=== PATIENT | female | born 1930 | race Caucasian/White ===

== ENCOUNTER 2016-11-03 09:50 | Outpatient (CLI) | payer MEDICARE, OTHER | END 2016-11-03 09:52 | LOC: RAD 09:50 | PROVIDERS: ATTEND Family Medicine | DX: Z78.0 Asymptomatic menopausal state (principal); Z13.820 Encounter for screening for osteoporosis | CPT/HCPCS: 77080 ==

== ENCOUNTER 2016-11-23 12:59 | Outpatient (CLI) | payer MEDICARE, OTHER ==
[2016-11-23 13:44] LABS: eGFR (African) > 60; eGFR (Non-African) 41
== END 2016-11-23 13:00 ==
LOC: LAB 12:59
PROVIDERS: ATTEND Family Medicine
DX: I10 Essential (primary) hypertension (principal)
CPT/HCPCS: 36415; 80048

== ENCOUNTER 2016-11-30 13:13 | Outpatient (CLI) | payer MEDICARE, OTHER ==
[2016-11-30] MEDS ORDERED: DENOSUMAB 60 MG/ML ML SQ ONE (13:30)
== END 2016-11-30 13:14 ==
LOC: INF 13:13
PROVIDERS: ATTEND Family Medicine
DX: M81.0 Age-related osteoporosis without current pathological fracture (principal)
CPT/HCPCS: 96372; J0897

== ENCOUNTER 2017-04-25 09:43 | Outpatient (CLI) | payer MEDICARE, OTHER ==
[2017-04-25 10:33] LABS: eGFR (African) > 60; eGFR (Non-African) > 60
== END 2017-04-25 09:44 ==
LOC: LAB 09:43
PROVIDERS: ATTEND Family Medicine
DX: E78.2 Mixed hyperlipidemia (principal)
CPT/HCPCS: 36415; 80053; 80061

== ENCOUNTER 2017-06-06 12:58 | Outpatient (CLI) | payer MEDICARE, OTHER ==
[2017-06-06] MEDS ORDERED: DENOSUMAB 60 MG/ML ML SQ ONE (13:00)
[2017-06-06] MEDS ORDERED: DENOSUMAB 60 MG/ML ML SQ SCH (13:00)
== END 2017-06-06 13:00 ==
LOC: INF 12:58
PROVIDERS: ATTEND Family Medicine
DX: M81.0 Age-related osteoporosis without current pathological fracture (principal)
CPT/HCPCS: 96372; J0897

== ENCOUNTER 2017-08-07 14:57 | Outpatient (CLI) | payer MEDICARE, OTHER ==
[2017-08-07 15:13] LABS: BASOPHILS % 0.4 (0.0-1.5); EOSINOPHILS % 1.7 % (0.0-6.8); MEAN CORPUSCULAR HEMOGLOBIN 28.9 pg (28.0-34.0); MEAN CORPUSCULAR VOLUME 88.8 fl (80.0-100.0); MONOCYTES % 6.6 % (0.0-11.0); NEUTROPHILS # 6.2 # k/uL (1.4-7.7)
--- NOTE | 2017-08-07 17:47 | Diagnostic Imaging Report ---
MENDOZA CHAVES [facility] [address] On License Of [facility] [address] [address] Report Submission Date: Aug 07, 2017 5:29:56 PM WIRE WEAVER CLOTH Patient Study Name: ARTUR BATEMAN Date: Aug 07, 2017 3:34:58 PM WIRE WEAVER CLOTH Modality Type: CR Gender: F Description: CHEST : 29 Institution: [facility] Physician: MENDOZA CHAVES PA and lateral chest Clinical history: PT STATES COUGH, SOB, SORE THROAT FOR 3 DAYS. DENIES ANY HEART OR LUNG CONDITIONS NONSMOKER. Findings: Examination of the chest in PA and lateral views with no prior films for comparison demonstrates the lungs to be hyperinflated with flattening of the hemidiaphragms. Cardiac silhouette is enlarged and the aorta is atherosclerotic. Minimal apical pleural thickening is seen bilaterally. There is no coalescent infiltrate. Impression: 1. Emphysema. 2. Cardiomegaly and aortic atherosclerosis. 3. No active disease. Electronically signed on Aug 07, 2017 5:29:56 PM WIRE WEAVER CLOTH by: Mode RICH
== END 2017-08-07 15:00 ==
LOC: RAD 14:57
PROVIDERS: ATTEND Family Medicine
DX: R05 Cough (principal)
CPT/HCPCS: 36415; 71020; 85025

== ENCOUNTER 2017-12-05 09:01 | Outpatient (CLI) | payer MEDICARE, OTHER ==
[2017-12-05] MEDS ORDERED: DENOSUMAB 60 MG/ML ML SQ ONE (09:15)
== END 2017-12-05 09:02 ==
LOC: INF 09:01
PROVIDERS: ATTEND Family Medicine
DX: M81.0 Age-related osteoporosis without current pathological fracture (principal)
CPT/HCPCS: 96372; J0897

== ENCOUNTER 2018-04-24 10:58 | Outpatient (CLI) | payer MEDICARE, OTHER ==
[2018-04-24 11:55] LABS: eGFR (Non-African) > 60
== END 2018-04-24 11:00 ==
LOC: LAB 10:58
PROVIDERS: ATTEND Family Medicine
DX: E78.2 Mixed hyperlipidemia (principal)
CPT/HCPCS: 36415; 80053; 80061

== ENCOUNTER 2018-09-19 00:40 | Emergency (ER) | payer MEDICARE, OTHER ==
--- NOTE | 2018-09-19 01:01 | ED Physician Documentation ---
General Adult - HISTORIAN Historian: patient - HPI Stated Complaint: rectal bleeding, syncope Chief Complaint: General Adult Onset: hours Timing: still present Severity: moderate Further Comments: yes (Pt is an 87 yo female who became lightheaded and fell with superficial abrasions to her face and some neck pain. Pt reports a significant amount of blood per rectum earlier in the day. Pt has had hemorrhoids but only small amounts of bleeding "from the hemorrhoids" in the past. Pt states she lost a significant amount of blood today, though she does n ot quantify it. Pt is not an ideal historian. Pt has not had chest pain, sob, diaphoresis. Pt states that she felt lightheaded before falling and that she was trying to lower herself to the floor when she passed out. She describes her facial abrasions as "rug burn." Pt complains now of feeling very weak. Pt is on Diclofenac 75 mg bid and ASA 81 mg qd.) - ROS CONST: weakness EYES/ENT: none CVS/RESP: none GI/: other (bleeding per rectum) MS/SKIN/LYMPH: other (superficial facial abrasions) NEURO/PSYCH: dizziness - PAST HX Past History: other (HTN, Gout, HLD, Depression, Breast Cancer, Osteoporosis, GERD) Surgeries/Procedures: other (breast cancer removal) Allergies/Adverse Reactions: Allergies Allergy/AdvReac Type Severity Reaction Status Date / Time terbinafine Allergy Verified 09/19/18 01:13 Home Medications: Ambulatory Orders Medication Instructions Recorded Aspir 81 81 mg PO DAILY u2 11/19/12 Calcium Carbonate [Calcium] 600 mg PO QDAY 12/05/17 Fexofenadine HCl [Maritza] 180 mg PO QDAY 12/05/17 Multivitamin [Daily Multiple 1 each PO QDAY 12/05/17 Vitamin] Diclofenac Sodium [Voltaren] 1 tab PO BID 09/19/18 - SOCIAL HX Smoking History: non-smoker - FAMILY HX Family History: Yes (Sister x 2 w breast cancer; father pancreatic cancer; brother DM) Progress - Progress Progress: NS 1L IVF Pt up to commode, became diaphoretic and nauseated, tachycardic, SBP 135 --> 110, HR 85 --> 105. Pt comfortable again after lying down. Protonix 80 mg IV Transfer to [facility], Dr. Spear - EKG/XRAY/CT EKG: NSR (HR=81; normal EKG) ED Results Lab/Radiology - Orders Orders: ED Orders Category Date Time Status Continuous EKG monitoring Q30M Care 09/19/18 00:54 Ordered Continuous Pulse Oximetry Q30M Care 09/19/18 00:[address] IV Lock 1T Care 09/19/18 00:54 Ordered CHEST 1VIEW [RAD] Stat Exams 09/19/[address] BRAIN W/O CONTRAST Stat Exams 09/19/[address] C-SPINE W/O CONTRAST Stat Exams 09/19/18 Ordered CBC/PLATELET/DIFF Routine Lab 09/19/18 00:54 Ordered CMP Routine Lab 09/19/18 00:54 Ordered PT-INR Routine Lab 09/19/18 Ordered PTT Routine Lab 09/19/18 Ordered TROPONIN I (cTnI) Stat Lab 09/19/18 00:54 Ordered Oxygen Daily Oxygen 09/19/18 01:00 Ordered EKG WITH COMPARISON Stat Ther 09/19/18 00:54 Ordered General Adult Physical Exam - PHYSICAL EXAM GENERAL APPEARANCE: mild distress EENT: pharynx normal NECK: normal inspection, other (neck tenderness) RESPIRATORY: no resp distress, chest non-tender, breath sounds normal CVS: heart sounds normal, tachycardia ABDOMEN: soft, no organomegaly, normal bowel sounds RECTAL: normal rectal tone, heme positive stool ([place] blood per rectum), other (much blood noted in undergarment) BACK: no CVA tenderness, other (kyphosis) SKIN: pallor EXTREMITIES: non-tender, normal range of motion, no evidence of injury, no edema NEURO: oriented X3, motor nml Discharge Clincal Impression: GI bleed, syncope, fall, facial abrasions, minor head trauma Referrals: Luba Kidd MD [Primary Care Provider] - Condition: Stable Disposition: XFER SHT-TRM HOSP Decision to Admit: NO Decision Time: 02:49
[2018-09-19] MEDS ORDERED: 0.9 % SODIUM CHLORIDE 500 ML IV ONE (02:13)
[2018-09-19] MEDS ORDERED: PANTOPRAZOLE SODIUM INJ. 40 MG VIAL ONE (02:44)
[2018-09-19] MEDS ORDERED: 0.9 % SODIUM CHLORIDE 1,000 ML IV ONE (02:45)
[2018-09-19 03:20] VITALS: BP 131/61
--- NOTE | 2018-09-19 05:33 | Diagnostic Imaging Report ---
ASHLEY AGARWAL [facility] [address] [facility] [address] [place] [address]. [address] Report Submission Date: Sep 19, 2018 2:09:36 AM STEAM TRAP MAN Patient Study Name: ARTUR BATEMAN Date: Sep 19, 2018 1:36:03 AM STEAM TRAP MAN Modality Type: CT\SR Gender: F Description: CT BRAIN W/O CONTRAST : 29 Institution: [facility] Physician: ASHLEY AGARWAL CT brain noncontrast Date of study: September 19, 2018 CLINICAL HISTORY: fall, LOC (Hx) / ITS.REASON fall, brief LOC Note time : 09/19/2018 3:03:19 AM User : Day Pink fall, LOC (DICOM Hx) TECHNIQUE: 5 mm contiguous axial images of the brain, noncontrast. FINDINGS: There is no evidence of intracranial mass effect, hemorrhage, or acute hydrocephalus. The lateral ventricles are enlarged and the 4th ventricle is midline without shift. No acute brain parenchymal changes or extra-axial fluid collections are identified. Cerebral and cerebellar atrophy are present. Bilateral white matter gliosis is present. The calvarium is intact. The visualized sinuses are clear. There are nasal fractures. Intracranial atherosclerotic vascular calcification is present. IMPRESSION: No acute intracranial process. Electronically signed on Sep 19, 2018 2:09:36 AM STEAM TRAP MAN by: Anthony RICH
--- NOTE | 2018-09-19 05:34 | Diagnostic Imaging Report ---
ASHLEY AGARWAL [facility] [address] [facility] [address] [place] [address]. [id number] Report Submission Date: Sep 19, 2018 2:11:49 AM RECEPTION CLERK Patient Study Name: ARTUR BATEMAN Date: Sep 19, 2018 1:38:51 AM RECEPTION CLERK Modality Type: CT\SR Gender: F Description: CT C-SPINE W/O CONTRAS : 29 Institution: [facility] Physician: ASHLEY AGARWAL CT cervical spine Date of examination: September 19, 2018 CLINICAL HISTORY: fall, left sided neck pain (Hx) / ITS.REASON fall, neck pain Note time : 09/19/2018 3:02:57 AM User : Day Pink fall, left sided neck pain (DICOM Hx) TECHNIQUE: 3 mm contiguous axial images of the cervical spine with sagittal and coronal reconstructions. FINDINGS: The disc and vertebral body height are preserved. Posterior facet joint degenerative arthritis is present through the cervical spine. No fracture or lytic changes identified. Carotid artery calcification is present in the neck. A right upper lobe nodular density measures 11 mm. IMPRESSION: No evidence of acute cervical spine fracture or subluxation Cervical spondylosis. Right upper lobe pulmonary nodular density Electronically signed on Sep 19, 2018 2:11:49 AM RECEPTION CLERK by: Anthony RICH
--- NOTE | 2018-09-19 05:35 | Diagnostic Imaging Report ---
ASHLEY AGARWAL [facility] [address] [facility] [address] [place] [address]. [address] Report Submission Date: Sep 19, 2018 2:07:58 AM GRAIN MERCHANDISING MANAGER Patient Study Name: ARTUR BATEMAN Date: Sep 19, 2018 1:50:42 AM GRAIN MERCHANDISING MANAGER Modality Type: DX Gender: F Description: CHEST 1VIEW : 29 Institution: [facility] Physician: ASHLEY AGARWAL Ap portable upright radiographs of the chest Clinical history syncope Technique: anterior /posterior portable upright Findings: The lung bermeo are hyperinflated. There is cardiomegaly and aortic atherosclerosis. No pneumothorax or pleural effusion is identified. Impression: Hyperinflation Cardiomegaly Aortic atherosclerosis. No acute infiltrate Electronically signed on Sep 19, 2018 2:07:58 AM GRAIN MERCHANDISING MANAGER by: Anthony RICH
[2018-09-19 07:51] LABS: MEAN CORPUSCULAR HEMOGLOBIN 29.2 pg (28.0-34.0)
[2018-09-19 07:52] LABS: BASOPHILS % 0.5 (0.0-1.5); EOSINOPHILS % 1.3 % (0.0-6.8); MONOCYTES % 4.4 % (0.0-11.0)
[2018-09-19 07:58] LABS: NEUTROPHILS # 7.5 # k/uL (1.4-7.7)
[2018-09-19 08:01] LABS: eGFR (Non-African) 43
== END 2018-09-19 03:17 | disposition short-term general hospital (02) ==
LOC: ED 00:40
DX: K92.2 Gastrointestinal hemorrhage, unspecified (principal); R55 Syncope and collapse; S00.81XA Abrasion of other part of head, initial encounter; S09.8XXA Other specified injuries of head, initial encounter; W19.XXXA Unspecified fall, initial encounter; Y93.9 Activity, unspecified; Y92.9 Unspecified place or not applicable
CPT/HCPCS: 36415; 70450; 71045; 72125; 80053; 83880; 84484; 85025; 85610; 85730; 93005; 99285; J7030; J7060

== ENCOUNTER 2018-10-03 16:22 | Outpatient (CLI) | payer MEDICARE, OTHER ==
[2018-10-03 16:44] LABS: MEAN CORPUSCULAR HEMOGLOBIN 30.7 pg (28.0-34.0)
== END 2018-10-03 16:23 ==
LOC: LAB 16:22
PROVIDERS: ATTEND Family Medicine
DX: D64.9 Anemia, unspecified (principal)
CPT/HCPCS: 36415; 85027

== ENCOUNTER 2018-10-14 10:16 | Outpatient (CLI) | payer MEDICARE, OTHER ==
[2018-10-14 10:31] LABS: MEAN CORPUSCULAR HEMOGLOBIN 29.6 pg (28.0-34.0)
== END 2018-10-14 10:18 ==
LOC: LAB 10:16
PROVIDERS: ATTEND Family Medicine
DX: D50.0 Iron deficiency anemia secondary to blood loss (chronic) (principal)
CPT/HCPCS: 36415; 85027

== ENCOUNTER 2018-12-09 15:02 | Emergency (ER) | payer MEDICARE, OTHER ==
[2018-12-09 15:21] VITALS: BP 173/90
[2018-12-09] MEDS: HYDROcodone /APAP 5/325 1 EACH TABLET PO ONE (15:26)
--- NOTE | 2018-12-09 15:26 | ED Physician Documentation ---
Fall - HISTORIAN Historian: patient, child (Daughter) - [facility] Stated Complaint: Fall Chief Complaint: Fall (Shoulder, Humerus, Chin) Additional Information: Patient is an 88-year-old female who presents to the ER with family. She states that she was shopping at [employer] in [place] when she stepped on something that made her foot sink and caused her to fall. She fell and hit her face (bruise to chin), broke her upper denture, inner lip laceration and pain to the right humerus. She denies hitting her head, no LOC, no other injuries. Onset: just prior to arrival Where: other ([employer] in [place]) Context: fell from standing (Stepped over object on floor and her foot sunk in and she fell) r: moderate Associated Symptoms:: no loss of consciousness Location of Pain/Injury: face (chin (broke upper denture), R shoulder (shoulder and humerus) Injury to Right Extremity: shoulder, arm (humerus) Injury to Left Extremity: none Front/Back of Body, Lg ([place]): 1 - arm pain Further Comments: no - ROS CONST: no problems NEURO: denies: dizziness MS/SKIN/LYMPH: denies: neck pain, back pain EYES/ENT: none CVS/RESP: none GI/: denies: nausea, vomiting - PAST HX Past History: diabetes Type 2, other (HTN, HLD, Gout, Breast CAx 2, Osteoporosis, Depression, GI bleed) Immunizations: UTD Allergies/Adverse Reactions: Allergies Allergy/AdvReac Type Severity Reaction Status Date / Time terbinafine Allergy Verified 12/09/18 15:18 Home Medications: Ambulatory Orders Medication Instructions Recorded Fexofenadine HCl [Maritza] 180 mg PO QDAY 12/05/17 - SOCIAL HX Smoking History: non-smoker Alcohol Use: none Drug Use: none - FAMILY HX Family History: no significant history - VITAL SIGNS Vital Signs: Vital Signs Temp Pulse Resp BP Pulse Ox 98.1 F 91 H 16 173/90 92 12/09/18 15:05 12/09/18 15:05 12/09/18 15:05 12/09/18 15:05 12/09/18 15:05 - REVIEWED ASSESSMENTS Nursing Assessment Reviewed: Yes Vitals Reviewed: Yes Procedures Wound Location: face (inner lip (upper)) Wound Length: 1.5 Wound's Depth, Shape: linear Wound Explored: clean Irrigated w/ Saline (ccs): 15 Betadine Prep?: No Anesthesia: 1% Lidocaine Volume of Anesthetic: 2 Wound Repaired With: sutures Suture Size/Type: 6:0, proline (polysorb) Number of Sutures: 2 Layer Closure?: No Progress - Progress Progress: 16:20 Call to [facility] and Dr. Dennison is auto transmission mechanic for Ortho- they will see her in clinic- apply shoulder immobilizer Phone number to call in the morning [phone] [facility] [address] Qureshi Family is going to stay with patient tonight 16:30 Patient feels relief after shoulder immobilizer and pain med ED Results Lab/Radiology - Radiology Radiology Impressions: Examination: Plain film right humerus History: RIGHT ARM PAIN POST FALL TODAY Comparison exams: None provided Findings: 4 views of the right humerus demonstrates diffuse osteopenia. Cortical lucency with displacement the humeral head neck. Remaining cortical margins without gross irregularity. Articular degenerative changes. Impression: Humeral neck fracture. Electronically signed on Dec 09, 2018 4:12:58 PM CDT by: Won Hopper - Orders Orders: ED Orders Category Date Time Status HUMERUS 2 VIEWS OR MORE [RAD] Stat Exams 12/09/18 Ordered SHOULDER 2 VIEWS OR MORE [RAD] Stat Exams 12/09/18 Ordered HYDROcodone /APAP 5/325 [[place] 5/325] Med 12/09/18 15:21 Discontinued 1 each PO NOW ONE Fall Physical Exam - Physical Exam General Appearance: alert, mild distress Head: non-tender Neck: non-tender, painless ROM Eye: GA, lids & conjunct. nml ENT: airway nml, dental injury (upper denture broke) Resp/CVS: breath sounds nml, heart sounds nml Abdomen: normal bowel sounds Neuro: oriented x3, sensation nml, motor nml, mood/affect nml, commercial center manager nml, commercial center manager symmetrical Skin: color nml, other (1.5 cm lac to the upper inner lip) Back: normal inspection Extremities: hips non-tender, nml color/temp Joint: limited ROM (right shoulder), painful (right humerus) - Mariya Coma Score Eyes Open: Spontaneous Speech: Oriented Motor: Obeys Commands Discharge Clincal Impression: Fracture of humeral head, right, closed, Laceration of intraoral surface of lip Referrals: Luba Kidd MD [Primary Care Provider] - 2 Days Additional Instructions: Call [facility] early in the morning [phone] and schedule appointment- Take radiology disc Wear Shoulder Immobilizer Take [place] 5/325 mg 1-2 tabs by mouth every 4-6 hrs as needed for pain- MAY CAUSE DROWSINESS AND RISK OF FALL Increase fluid intake- pain meds can cause constipation May continue to take Miralax Have someone stay with you tonight (family) to see how you do Condition: Stable Disposition: 01 HOME, SELF-CARE Decision to Admit: NO Decision Time: 16:38
[2018-12-09] MEDS ORDERED: Lidocaine 1% 5ml 10 MG/ML VIAL IJ ONE (15:40)
--- NOTE | 2018-12-09 16:14 | Diagnostic Imaging Report ---
JUAN R CHAND ED [facility] [address] Count Includes [facility] [address] [address] Report Submission Date: Dec 09, 2018 4:12:58 PM CDT Patient Study Name: ARTUR BATEMAN Date: Dec 09, 2018 3:43:44 PM CDT Modality Type: DX Gender: F Description: HUMERUS 2 VIEWS OR MORE : 28 Institution: [facility] Physician: JUAN R CHAND ED Examination: Plain film right humerus History: RIGHT ARM PAIN POST FALL TODAY Comparison exams: None provided Findings: 4 views of the right humerus demonstrates diffuse osteopenia. Cortical lucency with displacement the humeral head neck. Remaining cortical margins without gross irregularity. Articular degenerative changes. Impression: Humeral neck fracture. Electronically signed on Dec 09, 2018 4:12:58 PM CDT by: Won RICH
== END 2018-12-09 16:59 | disposition home or self-care (01) ==
LOC: ED 15:02
DX: S01.511A Laceration without foreign body of lip, initial encounter (principal); S42.291A Other displaced fracture of upper end of right humerus, initial encounter for closed fracture; W01.0XXA Fall on same level from slipping, tripping and stumbling without subsequent striking against object, initial encounter; Y93.89 Activity, other specified; Y92.59 Other trade areas as the place of occurrence of the external cause
CPT/HCPCS: 12011; 29240; 73060; 99283; 99284; A9270; 73030; L3660

== ENCOUNTER 2018-12-18 16:50 | Inpatient (IN) | payer MEDICARE, OTHER ==
--- NOTE | 2018-12-18 17:40 | History and Physical Report ---
History of Present Illnes - History of Present Illness Reason for Visit: Weakness History of Present Illness: Patient fell on 12-09-18 when she stepped on something soft while shopping and her foot gave way. She bruised her chin, broke her upper denture, and R humeral fx. She has been in a sling. Her chest pain didn't start until the next day and by 12-13-18 she found it hard to breathe. She was seen at [facility] ER and found to be hypoxic with rib fractures of the R 5-7 ribs. She required O2 and IV pain management. She is feeling some better. REady to get to work with PT/OT. Pain is controlled. Bowels not moving the best. She is too weak and unsteady on her feet to return home. Will admit to SNF for therapies. She had been hospitalized with GI bleed 10/08 from a diverticuli. She developed a LUE PICC DVT but due to GI bleeding, hematology said no anticoagulation. - Past Medical History Cardiac: HTN, Hyperlipidemia Gastrointestinal: Diverticulosis, GI bleed (10/08) Heme/Onc: Cancer (Breast), Other (DVT LUE PICC 10/08 - NO anticoagulation) Psych: Anxiety Musculoskeletal: Osteoarthritis, Other (DJD; Osteoporosis) - Past Surgical History Past Surgical History: Appendectomy, Hysterectomy, Hernia Repair, Tonsillectomy - Past Family History Mother Family History: Father Family History: Cancer (pancreatic), DM, Sister 1 Family History: Cancer (2 sisters with breast cancer) - Past Social History Smoke: No Alcohol: None Drugs: None Lives: Alone - Health Maintenance Health Maintenance: Cholesterol, Influenza Vaccine, Pneumococcal Vaccine, Mammogram, Colonoscopy, DEXA Influenza Vaccine: Current for this Influenza Season Pneumonia Vaccine: Yes Resuscitation Status: Resusciation Status Resuscitation Status Full Code Review of Systems - Review of Systems Constitutional: Weakness. negative: Fever Eyes: negative: pain ENT: negative: Nose Discharge, Nose Congestion Respiratory: negative: Cough, Shortness of Breath Cardiovascular: Chest Pain Gastrointestinal: Constipation. negative: Nausea, Vomiting, Abdominal Pain Genitourinary: negative: Dysuria, Frequency Musculoskeletal: Arm Pain (R) Skin: Bruising (chin; knees) Neurological: Weakness - Medications/Allergies Allergies/Adverse Reactions: Allergies Allergy/AdvReac Type Severity Reaction Status Date / Time terbinafine Allergy Verified 12/09/18 15:18 tramadol Allergy Verified 12/18/18 17:46 Home Medications: Home Medications Bisacodyl [Laxative] 10 mg PO DAILY 12/18/18 Calcium Carbonate/Vitamin D3 [Calcium 500-Vit D3 200 Tablet] 2 tab PO DAILY 12/18/18 HYDROcodone /APAP 5/325 [[place] 5/325] 1 tab PO BID 12/18/18 Polyethylene Glycol 3350 [Miralax] 1 packet PO DAILY 12/18/18 Exam - Exam General: Alert, Oriented to Person, Oriented to Place, Oriented to Time, Cooperative, No acute distress HEENT: Atraumatic, PERRLA, EOMI, Mouth Mucous membr. moist/[place], Nose Mucous membr. moist/[place] Neck: Normal Range of Motion Lungs: Clear to auscultation, Normal air movement, Speaks full Sentences Cardiovascular: Regular rate Abdomen: Normal bowel sounds, Soft, No tenderness Integumentary: Other (Healing bruises) Extremities: No edema Neurological: Generalized Weakness Psych/Mental Status: Mental status NL, Mood NL, Appropriate Affect, Intact Judgment Assessment/Plan - Assessment/Plan (1) Multiple rib fractures Status: Acute Current Visit: Yes Qualifiers: Encounter type: sequela Fracture type: closed Laterality: right Qualified Code(s): S22.41XS - Multiple fractures of ribs, right side, sequela Plan: Encourage patient to use IS to prevent pneumonia. Pain meds as needed. Watch for bowel movements. (2) HTN (hypertension) Status: Chronic Current Visit: No Qualifiers: Hypertension type: essential hypertension Qualified Code(s): I10 - Essential (primary) hypertension (3) Fracture of humeral head, right, closed Status: Acute Current Visit: No Qualifiers: Encounter type: sequela Qualified Code(s): S42.291S - Other displaced fracture of upper end of right humerus, sequela Plan: Will keep patient in sling for 5 weeks (despite paperwork saying 5 months.). Family to check on f/u with DR. Qureshi. (4) Weakness Status: Acute Current Visit: Yes Plan: Admit for PT/OT eval and treat. SCD's for DVT prevention (no anticoag with recent GI bleed). UP frequently. VTE Assessment - RISK FACTOR SCORE VTE RISK FACTOR SCORES: AGE OVER 60 YEARS - RISK VTE LOW RISK: SCORE OF 1 OR LESS (RISK PROXIMAL DVT 0.4%) NO PROPHYLAXIS NEEDED
[2018-12-18 17:46] VITALS: BMI 26.9
[2018-12-18] MEDS ORDERED: LORATADINE 10 MG TABLET PO PRN (20:19)
[2018-12-18] MEDS: SIMVASTATIN 20 MG TABLET PO SCH (20:31)
[2018-12-18] MEDS: PANTOPRAZOLE SODIUM 40 MG TABLET.DR PO SCH (20:31)
[2018-12-18] MEDS ORDERED: HYDROcodone /APAP 5/325 1 EACH TABLET PO SCH (21:00)
[2018-12-18] MEDS: HYDROcodone /APAP 5/325 1 EACH TABLET PO PRN (21:17)
[2018-12-18] MEDS ORDERED: BISACODYL 10 MG SUPP.RECT RC PRN (21:18)
[2018-12-19] MEDS: HYDROcodone /APAP 5/325 1 EACH TABLET PO PRN ×2 (04:33→20:43)
[2018-12-19] MEDS: LIDOCAINE HCL 5% ADH..PATCH TP SCH (08:08)
[2018-12-19] MEDS: SIMVASTATIN 20 MG TABLET PO SCH (08:13)
[2018-12-19] MEDS: CALCIUM/VIT D 500MG/200 UNIT TABLET PO SCH (08:15)
[2018-12-19] MEDS: PARoxetine HCL 10 MG TABLET PO SCH ×2 (08:16→08:17)
[2018-12-19] MEDS: POLYETHYLENE GLYCOL 3350 17 GM POWD.PACK PO SCH (08:24)
[2018-12-19] MEDS ORDERED: PARoxetine HCL 10 MG TABLET PO SCH (09:00)
[2018-12-19] MEDS: PANTOPRAZOLE SODIUM 40 MG TABLET.DR PO SCH (20:43)
[2018-12-19] MEDS: REMOVAL MC SCH (20:44)
[2018-12-20] MEDS: HYDROcodone /APAP 5/325 1 EACH TABLET PO PRN ×3 (01:12→20:33)
[2018-12-20] MEDS: PARoxetine HCL 10 MG TABLET PO SCH (09:36)
[2018-12-20] MEDS: SIMVASTATIN 20 MG TABLET PO SCH (09:36)
[2018-12-20] MEDS: CALCIUM/VIT D 500MG/200 UNIT TABLET PO SCH (09:36)
[2018-12-20] MEDS: POLYETHYLENE GLYCOL 3350 17 GM POWD.PACK PO SCH (09:37)
[2018-12-20] MEDS: LIDOCAINE HCL 5% ADH..PATCH TP SCH (09:37)
[2018-12-20] MEDS: PANTOPRAZOLE SODIUM 40 MG TABLET.DR PO SCH (20:30)
[2018-12-20] MEDS: REMOVAL MC SCH (20:32)
[2018-12-21] MEDS: PARoxetine HCL 10 MG TABLET PO SCH (09:15)
[2018-12-21] MEDS: POLYETHYLENE GLYCOL 3350 17 GM POWD.PACK PO SCH (09:15)
[2018-12-21] MEDS: HYDROcodone /APAP 5/325 1 EACH TABLET PO PRN ×2 (09:16→22:41)
[2018-12-21] MEDS: SIMVASTATIN 20 MG TABLET PO SCH (09:16)
[2018-12-21] MEDS: LIDOCAINE HCL 5% ADH..PATCH TP SCH (09:16)
[2018-12-21] MEDS: CALCIUM/VIT D 500MG/200 UNIT TABLET PO SCH (09:16)
[2018-12-21] MEDS: PANTOPRAZOLE SODIUM 40 MG TABLET.DR PO SCH (20:27)
[2018-12-21] MEDS: REMOVAL MC SCH (20:27)
[2018-12-22] MEDS: LIDOCAINE HCL 5% ADH..PATCH TP SCH (07:53)
[2018-12-22] MEDS: CALCIUM/VIT D 500MG/200 UNIT TABLET PO SCH (07:53)
[2018-12-22] MEDS: PARoxetine HCL 10 MG TABLET PO SCH (07:53)
[2018-12-22] MEDS: SIMVASTATIN 20 MG TABLET PO SCH (07:53)
[2018-12-22] MEDS: POLYETHYLENE GLYCOL 3350 17 GM POWD.PACK PO SCH (07:53)
[2018-12-22] MEDS: HYDROcodone /APAP 5/325 1 EACH TABLET PO PRN ×2 (07:54→20:46)
[2018-12-22] MEDS: REMOVAL MC SCH (20:47)
[2018-12-22] MEDS: PANTOPRAZOLE SODIUM 40 MG TABLET.DR PO SCH (20:48)
[2018-12-23] MEDS: HYDROcodone /APAP 5/325 1 EACH TABLET PO PRN ×3 (02:19→18:45)
[2018-12-23] MEDS: PARoxetine HCL 10 MG TABLET PO SCH (08:18)
[2018-12-23] MEDS: SIMVASTATIN 20 MG TABLET PO SCH (08:18)
[2018-12-23] MEDS: CALCIUM/VIT D 500MG/200 UNIT TABLET PO SCH (08:18)
[2018-12-23] MEDS: LIDOCAINE HCL 5% ADH..PATCH TP SCH (08:18)
[2018-12-23] MEDS: POLYETHYLENE GLYCOL 3350 17 GM POWD.PACK PO SCH (08:18)
[2018-12-23] MEDS: REMOVAL MC SCH (19:50)
[2018-12-23] MEDS: PANTOPRAZOLE SODIUM 40 MG TABLET.DR PO SCH (19:51)
[2018-12-24] MEDS: HYDROcodone /APAP 5/325 1 EACH TABLET PO PRN ×2 (03:30→12:50)
[2018-12-24] MEDS: CALCIUM/VIT D 500MG/200 UNIT TABLET PO SCH (08:47)
[2018-12-24] MEDS: PARoxetine HCL 10 MG TABLET PO SCH (08:47)
[2018-12-24] MEDS: SIMVASTATIN 20 MG TABLET PO SCH (08:48)
[2018-12-24] MEDS: POLYETHYLENE GLYCOL 3350 17 GM POWD.PACK PO SCH (08:50)
[2018-12-24] MEDS: LIDOCAINE HCL 5% ADH..PATCH TP SCH (08:52)
[2018-12-24] MEDS: REMOVAL MC SCH (20:29)
[2018-12-24] MEDS: PANTOPRAZOLE SODIUM 40 MG TABLET.DR PO SCH (20:29)
[2018-12-25] MEDS: HYDROcodone /APAP 5/325 1 EACH TABLET PO PRN ×2 (00:55→22:17)
--- NOTE | 2018-12-25 07:52 | Inpatient Progress Note ---
Subjective - Required Recertification Statement I anticipate X number of days because-include discharge plan: 10 - Review of Systems Subjective: Patient is doing ok. Complains of abdomen feeling very tight and swollen off and on. Unable to link anything to it. Has had good bowel sounds and having good BM daily. No blood in BM. No SOB. Objective - Exam Vitals and I&O: Vital Signs Temp 98.0 F 12/24/18 20:26 Pulse 99 H 12/24/18 20:26 Resp 18 12/24/18 20:26 BP 166/103 12/24/18 20:26 Pulse Ox 94 12/24/18 20:26 Intake & Output 12/24/18 12/24/18 12/25/18 11:59 23:59 11:59 Intake Total 840 120 100 Output Total 1 Balance 840 120 99 Intake: Oral 840 120 100 Output: Stool 1 Other: Voiding Method Toilet Toilet # Voids 2 3 # Bowel Movements 0 General: Alert, Oriented to Person, Oriented to Place, Oriented to Time, Cooperative, No acute distress Lungs: Clear to auscultation, Normal air movement, Speaks full Sentences Cardiovascular: Regular rate Abdomen: Normal bowel sounds, No tenderness, Distended (Mild) Assessment/Plan - Assessment/Plan (1) Multiple rib fractures Status: Acute Current Visit: Yes Qualifiers: Encounter type: sequela Fracture type: closed Laterality: right Qualified Code(s): S22.41XS - Multiple fractures of ribs, right side, sequela (2) HTN (hypertension) Status: Chronic Current Visit: No Qualifiers: Hypertension type: essential hypertension Qualified Code(s): I10 - Essential (primary) hypertension (3) Fracture of humeral head, right, closed Status: Acute Current Visit: No Qualifiers: Encounter type: sequela Qualified Code(s): S42.291S - Other displaced fracture of upper end of right humerus, sequela (4) Weakness Status: Acute Current Visit: Yes (5) Bloating Status: Acute Current Visit: Yes Plan: Will get KUB today. When nurse went in 30 min after me, belly was soft. Protonix is new. Will stop and see if that makes a difference.
[2018-12-25] MEDS ORDERED: DOCUSATE SODIUM 100 MG CAPSULE ONE (08:34)
[2018-12-25] MEDS: CALCIUM/VIT D 500MG/200 UNIT TABLET PO SCH (08:45)
[2018-12-25] MEDS: LIDOCAINE HCL 5% ADH..PATCH TP SCH (08:45)
[2018-12-25] MEDS: POLYETHYLENE GLYCOL 3350 17 GM POWD.PACK PO SCH (08:45)
[2018-12-25] MEDS: PARoxetine HCL 10 MG TABLET PO SCH (08:45)
[2018-12-25] MEDS: SIMVASTATIN 20 MG TABLET PO SCH (10:46)
--- NOTE | 2018-12-25 15:54 | Diagnostic Imaging Report ---
MENDOZA CHAVES [facility] [address] [facility] [address] [place], [place]. [address] Report Submission Date: December 25, 2018 9:36:23 AM CDT Patient Study Name: ARTUR BATEMAN Date: December 25, 2018 8:45:33 AM CDT Modality Type: DX Gender: F Description: ABDOMEN 1VIEW : 28 Institution: [facility] Physician: MENDOZA CHAVES Exam: Single view abdomen. History: Kidney, ureter, and bladder. No previous studies are available for comparison. Scattered loops of bowel gas in both large and small intestine is noted with a moderate amount of retained fecal material seen in colon. No organomegaly is seen. No renal or biliary calcifications are noted. Impression: Nonspecific bowel gas pattern. Electronically signed on December 25, 2018 9:36:23 AM CDT by: Cortez RICH
[2018-12-25] MEDS: REMOVAL MC SCH (21:23)
[2018-12-25] MEDS ORDERED: SIMETHICONE 80 MG TAB.CHEW PO PRN (22:30)
[2018-12-26] MEDS: HYDROcodone /APAP 5/325 1 EACH TABLET PO PRN ×2 (04:52→19:31)
[2018-12-26] MEDS: PARoxetine HCL 10 MG TABLET PO SCH (08:50)
[2018-12-26] MEDS: LIDOCAINE HCL 5% ADH..PATCH TP SCH (08:50)
[2018-12-26] MEDS: CALCIUM/VIT D 500MG/200 UNIT TABLET PO SCH (08:50)
[2018-12-26] MEDS: SIMVASTATIN 20 MG TABLET PO SCH (08:50)
[2018-12-26] MEDS: POLYETHYLENE GLYCOL 3350 17 GM POWD.PACK PO SCH (08:50)
[2018-12-26] MEDS: CALCIUM CARB 500 MG TAB.CHEW PO PRN (12:21)
[2018-12-26] MEDS: REMOVAL MC SCH (20:29)
[2018-12-27] MEDS: LIDOCAINE HCL 5% ADH..PATCH TP SCH (08:37)
[2018-12-27] MEDS: POLYETHYLENE GLYCOL 3350 17 GM POWD.PACK PO SCH (08:37)
[2018-12-27] MEDS: PARoxetine HCL 10 MG TABLET PO SCH (08:38)
[2018-12-27] MEDS: SIMVASTATIN 20 MG TABLET PO SCH (08:38)
[2018-12-27] MEDS: CALCIUM/VIT D 500MG/200 UNIT TABLET PO SCH (08:38)
[2018-12-27] MEDS: PROBENECID/COLCHICINE 500-0.5 MG TABLET PO SCH ×2 (13:48→20:13)
[2018-12-27] MEDS: CALCIUM CARB 500 MG TAB.CHEW PO PRN (14:24)
[2018-12-27] MEDS: REMOVAL MC SCH (20:14)
[2018-12-27] MEDS: HYDROcodone /APAP 5/325 1 EACH TABLET PO PRN (22:31)
[2018-12-28] MEDS: HYDROcodone /APAP 5/325 1 EACH TABLET PO PRN (05:50)
[2018-12-28] MEDS: CALCIUM/VIT D 500MG/200 UNIT TABLET PO SCH (08:57)
[2018-12-28] MEDS: PARoxetine HCL 10 MG TABLET PO SCH (08:57)
[2018-12-28] MEDS: SIMVASTATIN 20 MG TABLET PO SCH (08:57)
[2018-12-28] MEDS: POLYETHYLENE GLYCOL 3350 17 GM POWD.PACK PO SCH (08:57)
[2018-12-28] MEDS: LIDOCAINE HCL 5% ADH..PATCH TP SCH (08:57)
[2018-12-28] MEDS: PROBENECID/COLCHICINE 500-0.5 MG TABLET PO SCH ×2 (08:57→20:11)
[2018-12-28] MEDS: CALCIUM CARB 500 MG TAB.CHEW PO PRN (12:14)
[2018-12-28] MEDS: REMOVAL MC SCH (20:12)
[2018-12-29] MEDS: HYDROcodone /APAP 5/325 1 EACH TABLET PO PRN ×2 (01:37→20:15)
[2018-12-29] MEDS: CALCIUM CARB 500 MG TAB.CHEW PO PRN ×2 (01:37→17:22)
[2018-12-29] MEDS: PROBENECID/COLCHICINE 500-0.5 MG TABLET PO SCH ×2 (09:00→20:16)
[2018-12-29] MEDS: POLYETHYLENE GLYCOL 3350 17 GM POWD.PACK PO SCH (09:01)
[2018-12-29] MEDS: CALCIUM/VIT D 500MG/200 UNIT TABLET PO SCH (09:01)
[2018-12-29] MEDS: PARoxetine HCL 10 MG TABLET PO SCH (09:01)
[2018-12-29] MEDS: LIDOCAINE HCL 5% ADH..PATCH TP SCH (09:01)
[2018-12-29] MEDS: SIMVASTATIN 20 MG TABLET PO SCH (09:02)
[2018-12-29] MEDS: PANTOPRAZOLE SODIUM 40 MG TABLET.DR PO SCH (10:00)
[2018-12-29] MEDS ORDERED: PANTOPRAZOLE SODIUM 40 MG TABLET.DR ONE (10:55)
[2018-12-29] MEDS: REMOVAL MC SCH (20:17)
[2018-12-30] MEDS: PANTOPRAZOLE SODIUM 40 MG TABLET.DR PO SCH (06:03)
[2018-12-30] MEDS: CALCIUM/VIT D 500MG/200 UNIT TABLET PO SCH (08:54)
[2018-12-30] MEDS: SIMVASTATIN 20 MG TABLET PO SCH (08:54)
[2018-12-30] MEDS: POLYETHYLENE GLYCOL 3350 17 GM POWD.PACK PO SCH (08:54)
[2018-12-30] MEDS: PARoxetine HCL 10 MG TABLET PO SCH (08:54)
[2018-12-30] MEDS: PROBENECID/COLCHICINE 500-0.5 MG TABLET PO SCH ×2 (08:55→20:54)
[2018-12-30] MEDS: LIDOCAINE HCL 5% ADH..PATCH TP SCH (08:55)
--- NOTE | 2018-12-30 12:27 | Inpatient Progress Note ---
Subjective - Required Recertification Statement I anticipate X number of days because-include discharge plan: 7 - Review of Systems Subjective: Patient doing better off protonix - no more bloating. But having acid reflux. Objective - Exam Vitals and I&O: Vital Signs Temp 9706 F H 12/30/18 08:46 Pulse 107 H 12/30/18 08:46 Resp 20 12/30/18 08:46 BP 157/86 12/30/18 08:46 Pulse Ox 92 12/30/18 08:46 Intake & Output 12/29/18 12/30/18 12/30/18 23:59 11:59 23:59 Intake Total 480 480 Balance 480 480 Intake: Oral 480 480 Other: Voiding Method Toilet Toilet # Voids 2 # Bowel Movements 0 General: Alert, Oriented to Person, Oriented to Place, Oriented to Time, Cooperative, No acute distress Lungs: Clear to auscultation, Normal air movement, Speaks full Sentences Cardiovascular: Regular rate Assessment/Plan - Assessment/Plan (1) Multiple rib fractures Status: Acute Current Visit: Yes Qualifiers: Encounter type: sequela Fracture type: closed Laterality: right Qualified Code(s): S22.41XS - Multiple fractures of ribs, right side, sequela (2) HTN (hypertension) Status: Chronic Current Visit: No Qualifiers: Hypertension type: essential hypertension Qualified Code(s): I10 - Essential (primary) hypertension (3) Fracture of humeral head, right, closed Status: Acute Current Visit: No Qualifiers: Encounter type: sequela Qualified Code(s): S42.291S - Other displaced fracture of upper end of right humerus, sequela (4) Weakness Status: Acute Current Visit: Yes (5) Bloating Status: Acute Current Visit: Yes (6) GERD without esophagitis Status: Acute Current Visit: Yes Plan: Start famotidine.
[2018-12-30] MEDS: HYDROcodone /APAP 5/325 1 EACH TABLET PO PRN (20:51)
[2018-12-30] MEDS: REMOVAL MC SCH (20:52)
[2018-12-30] MEDS: FAMOTIDINE 20 MG TABLET PO SCH (20:53)
[2018-12-31] MEDS: HYDROcodone /APAP 5/325 1 EACH TABLET PO PRN ×2 (01:49→09:30)
[2018-12-31] MEDS: PANTOPRAZOLE SODIUM 40 MG TABLET.DR PO SCH (06:01)
[2018-12-31] MEDS: SIMVASTATIN 20 MG TABLET PO SCH (09:30)
[2018-12-31] MEDS: CALCIUM/VIT D 500MG/200 UNIT TABLET PO SCH (09:30)
[2018-12-31] MEDS: PARoxetine HCL 10 MG TABLET PO SCH (09:31)
[2018-12-31] MEDS: POLYETHYLENE GLYCOL 3350 17 GM POWD.PACK PO SCH (09:31)
[2018-12-31] MEDS: PROBENECID/COLCHICINE 500-0.5 MG TABLET PO SCH ×2 (09:31→20:13)
[2018-12-31] MEDS: FAMOTIDINE 20 MG TABLET PO SCH ×2 (09:31→20:13)
[2018-12-31] MEDS: LIDOCAINE HCL 5% ADH..PATCH TP SCH (09:34)
[2018-12-31 16:22] LABS: eGFR (Non-African) 40
[2018-12-31] MEDS: REMOVAL MC SCH (20:13)
[2018-12-31] MEDS ORDERED: SIMETHICONE 80 MG TAB.CHEW PO PRN (21:50)
[2019-01-01] MEDS: PANTOPRAZOLE SODIUM 40 MG TABLET.DR PO SCH (06:30)
--- NOTE | 2019-01-01 07:48 | Discharge Summary ---
Discharge Summary - Discharge [facility] Admission Date: 12/18/18 Discharge Date: 01/01/19 Discharge To: Home History of Present Illness: Patient fell on 12-09-18 when she stepped on something soft while shopping and her foot gave way. She bruised her chin, broke her upper denture, and R humeral fx. She has been in a sling. Her chest pain didn't start until the next day and by 12-13-18 she found it hard to breathe. She was seen at [facility] ER and found to be hypoxic with rib fractures of the R 5-7 ribs. She required O2 and IV pain management. She is feeling some better. REady to get to work with PT/OT. Pain is controlled. Bowels not moving the best. She is too weak and unsteady on her feet to return home. Will admit to SNF for therapies. She had been hospitalized with GI bleed 10/08 from a diverticuli. She developed a LUE PICC DVT but due to GI bleeding, hematology said no anticoagulation. Condition at Discharge: Stable Home Medications: Ambulatory Orders Medication Instructions Recorded Fexofenadine HCl [Maritza] 180 mg PO QDAY 12/05/17 Bisacodyl [Laxative] 10 mg PO DAILY 12/18/18 Calcium Carbonate/Vitamin D3 2 tab PO DAILY 12/18/18 [Calcium 500-Vit D3 200 Tablet] HYDROcodone /APAP 5/325 [[place] 1 tab PO BID 12/18/18 5/325] Polyethylene Glycol 3350 [Miralax] 1 packet PO DAILY 12/18/18 Triamcinolone 0.1% Cream [Kenalog 80 gm TP BID #80 tube 01/01/19 0.1% Cream] Consultations this Visit: None Procedures this Visit: None Allergies/Adverse Reactions: Allergies Allergy/AdvReac Type Severity Reaction Status Date / Time terbinafine Allergy Verified 12/09/18 15:18 tramadol Allergy Verified 12/18/18 17:46 Discharge Summary: Patient was admitted to SNF for PT/OT after being hospitalized from a fall and having multiple rib fx and a R humerus fx. She did well. Weaned off O2. Became more independent despite NWB on R arm. Had some bloating that improved once protonix was stopped. She also had some L 3rd toe pain - addiction treatment counselor provider thought it was gout (no uric acid done) and started her on probenacid/colchicine. She responded well to it. Continue 10 days total and consider allopurinol. She was discharged home in good condition. Refuses home health as she wants to be able to come and go as she wants. Hospital Course: Discharge Dx: R humerus fx. Rib fractures. Gout. HTN. Anxiety. Disposition - home
[2019-01-01] MEDS: PROBENECID/COLCHICINE 500-0.5 MG TABLET PO SCH (08:04)
[2019-01-01] MEDS: PARoxetine HCL 10 MG TABLET PO SCH (08:05)
[2019-01-01] MEDS: CALCIUM/VIT D 500MG/200 UNIT TABLET PO SCH (08:05)
[2019-01-01] MEDS: SIMVASTATIN 20 MG TABLET PO SCH (08:05)
[2019-01-01] MEDS: FAMOTIDINE 20 MG TABLET PO SCH (08:05)
[2019-01-01] MEDS: POLYETHYLENE GLYCOL 3350 17 GM POWD.PACK PO SCH (08:05)
[2019-01-01] MEDS: LIDOCAINE HCL 5% ADH..PATCH TP SCH (08:09)
[2019-01-01 08:48] VITALS: BP 148/89
== END 2019-01-01 10:05 | disposition home or self-care (01) | DRG 561 ==
LOC: SOUTH 16:50
PROVIDERS: ADMIT Family Medicine; ATTEND Family Medicine
DX: S42.291D Other displaced fracture of upper end of right humerus, subsequent encounter for fracture with routine healing (principal); S22.41XD Multiple fractures of ribs, right side, subsequent encounter for fracture with routine healing; I10 Essential (primary) hypertension; E78.5 Hyperlipidemia, unspecified; K21.9 Gastro-esophageal reflux disease without esophagitis; K57.90 Diverticulosis of intestine, part unspecified, without perforation or abscess without bleeding; M10.9 Gout, unspecified; F41.9 Anxiety disorder, unspecified; M19.90 Unspecified osteoarthritis, unspecified site; M81.0 Age-related osteoporosis without current pathological fracture; Z90.49 Acquired absence of other specified parts of digestive tract; Z90.710 Acquired absence of both cervix and uterus; Z88.5 Allergy status to narcotic agent; Z86.718 Personal history of other venous thrombosis and embolism; Z85.3 Personal history of malignant neoplasm of breast; Z87.891 Personal history of nicotine dependence; Z88.8 Allergy status to other drugs, medicaments and biological substances; Z79.899 Other long term (current) drug therapy; W01.0XXD Fall on same level from slipping, tripping and stumbling without subsequent striking against object, subsequent encounter
CPT/HCPCS: 36415; 74018; 80048; 99221; A9270-GY

== ENCOUNTER 2019-02-18 09:26 | Outpatient (CLI) | payer MEDICARE, OTHER ==
[2019-02-18 09:39] LABS: BASOPHILS % 0.4 % (0.0-1.5); NEUTROPHILS # 4.3 # k/uL (1.4-7.7)
--- NOTE | 2019-02-18 15:09 | Diagnostic Imaging Report ---
MENDOZA CHAVES [facility] [id number] [facility] [address] [place], [place]. [address] Report Submission Date: Feb 18, 2019 11:03:18 AM CDT Patient Study Name: ARTUR BATEMAN Date: Feb 18, 2019 9:59:33 AM CDT Modality Type: CT\SR Gender: F Description: CT ABD/PELVIS W/CONTRAST : 28 Institution: [facility] Physician: MENDOZA CHAVES Exam: CT abdomen and pelvis with contrast. History: Abdominal bloating. Axial images through the abdomen and pelvis with oral contrast and after IV infusion of 90 cc Omnipaque 350 is submitted along with sagittal and coronal reformatted images. The visualized lower lung bermeo are clear. No free intraperitoneal air is identified. A moderate size hiatal hernia is identified. Areas of increased attenuation within the distended gallbladder are noted. The liver, spleen and pancreas appear normal in attenuation and enhancement without space-occupying lesion. The adrenal glands are normal configuration. The abdominal aorta is of normal caliber and associated with atherosclerotic plaque. No periaortic lymphadenopathy is identified. Multiple right renal cysts are identified. Left-sided parapelvic cysts are identified. No hydronephrosis or hydroureter is identified. The urinary bladder is distended without trabeculation. The small bowel is of normal caliber. Air and stool seen throughout the large intestine. No inflammatory changes in the mesentery or ascites is identified. No bony abnormalities are identified. Impression: Cholelithiasis. Moderate size hiatal hernia. Multiple right renal cortical cyst. Left parapelvic cyst. No hydronephrosis or hydroureter. Nonspecific bowel gas pattern. No inflammatory changes in the mesentery or ascites is identified. Electronically signed on Feb 18, 2019 11:03:18 AM CDT by: Cortez RICH
== END 2019-02-18 09:28 ==
LOC: RAD 09:26
PROVIDERS: ATTEND Family Medicine
DX: R14.0 Abdominal distension (gaseous) (principal); L29.9 Pruritus, unspecified
CPT/HCPCS: 36415; 74177; 80053; 84443; 85025; Q9967

== ENCOUNTER 2019-04-22 10:04 | Outpatient (CLI) | payer MEDICARE, OTHER | END 2019-04-22 10:06 | LOC: LAB 10:04 | PROVIDERS: ATTEND Family Medicine | DX: E78.2 Mixed hyperlipidemia (principal) | CPT/HCPCS: 36415; 80061 ==